=== PATIENT | male | born 1970 | race Caucasian/White ===

== ENCOUNTER 2025-02-25 23:57 | Emergency (ER) | payer BC ==
[~2025-02-25] VITALS: Ht 177.8 cm; Wt 78.0 kg
[2025-02-26 01:17] LABS: CLARITY URINE CLEAR (CLEAR); COLOR URINE YELLOW (YELLOW); GLUCOSE URINE NEGATIVE (NEGATIVE); KETONES URINE TRACE (NEGATIVE); LEUKOCYTE ESTERASE URINE NEGATIVE (NEGATIVE); NITRITE URINE NEGATIVE (NEGATIVE); OCCULT BLOOD URINE NEGATIVE (NEGATIVE); PH URINE 5.5 (4.5-8.0); PROTEIN URINE 1+ (NEGATIVE); SPECIFIC GRAVITY URINE 1.016 (1.005-1.030); UROBILINOGEN URINE 0.2 E.U./dL (0.2-1.0)
[2025-02-26 01:29] LABS: BASOPHILS % 0.0 % (0.0-2.0); EOSINOPHILS % 0.1 % (0.0-5.0); HEMATOCRIT. 41.9 % (42.0-52.0); HEMOGLOBIN. 14.2 g/dL (14.0-18.0); LYMPHOCYTES % 7.8 % (20.0-50.0); MEAN PLATELET VOLUME 6.1 fl (7.4-10.4); MONOCYTES % 11.1 % (2.0-8.0); NEUTROPHILS % 81.0 % (40.0-76.0); PLATELET 280 x1000/uL (130-400); RED BLOOD CELL COUNT 4.89 mill/uL (4.7-6.1); RED CELL DISTRIBUTION WIDTH 13.1 % (11.6-14.6)
[2025-02-26 01:30] LABS: *AMPHETAMINES SCREEN URINE NEGATIVE (NEGATIVE); *BARBITURATES SCREEN URINE NEGATIVE (NEGATIVE); *BENZODIAZEPINES SCREEN URINE PRESUMPTIVE POSITIVE (NEGATIVE)
[2025-02-26 01:31] LABS: *COCAINE SCREEN URINE PRESUMPTIVE POSITIVE (NEGATIVE); CANNABINOID URINE SCREEN PRESUMPTIVE POSITIVE (NEGATIVE); ECSTASY MDMA SCREEN URINE NEGATIVE (NEGATIVE); METHADONE URINE SCREEN NEGATIVE (NEGATIVE); OPIATES URINE SCREEN NEGATIVE (NEGATIVE); PHENCYCLIDINE URINE SCREEN NEGATIVE (NEGATIVE)
[2025-02-26 01:42] LABS: UREA NITROGEN BLOOD 10 mg/dL (9-23)
[2025-02-26 01:43] LABS: CREATININE 1.0 mg/dL (0.6-1.3)
[2025-02-26 01:44] LABS: ETHANOL BLOOD < 10 mg/dL (<10)
[2025-02-26 01:45] LABS: ASPARTATE AMINOTRANSFERASE 19 IU/L (<34)
[2025-02-26 01:46] LABS: BILIRUBIN DIRECT 0.2 mg/dL (<=3.0); BILIRUBIN TOTAL 0.7 mg/dL (0.1-1.0); PROTEIN TOTAL 6.5 g/dL (6.0-8.3)
[2025-02-26 02:05] LABS: BACTERIA URINE TRACE; RBC URINE NONE SEEN /hpf (0-2); SQUAMOUS EPITHELIAL CELL URINE NONE SEEN /lpf (RARE/1+); WBC URINE 0-2 /hpf (0-2)
[2025-02-26] MEDS ORDERED: TRAZODONE HCL 50MG TABLET PO NR (02:15)
[2025-02-26] MEDS: LORAZEPAM 2MG/ML UD SYRINGE IM NR (02:30)
[2025-02-26] MEDS: DIPHENHYDRAMINE 50MG/ML VIAL IM ONE (02:30)
[2025-02-26] MEDS: OLANZAPINE 10 MG/VIAL IM ONE (02:30)
[2025-02-26 03:45] VITALS: O2SAT 97
[2025-02-26] MEDS: POTASSIUM CHLORIDE 20MEQ/PACKET PO ONE (06:08)
[2025-02-26] MEDS ORDERED: TRAZODONE HCL 50MG TABLET PO PRN (11:15)
[2025-02-26] MEDS: OLANZAPINE 5MG TABLET PO SCH (11:56)
[2025-02-26 14:00] VITALS: BP 114/66; PULSE 88; RESP 14; TEMP 36.5; O2SAT 100
[2025-02-26] MEDS ORDERED: TRAZODONE HCL 50MG TABLET PO SCH (21:00)
[2025-02-26] MEDS ORDERED: LAMOTRIGINE 100MG TABLET PO SCH (21:00)
== END 2025-02-26 15:05 ==
LOC: ER 23:57
DX: F19.10 Other psychoactive substance abuse, uncomplicated (principal); R45.1 Restlessness and agitation; Z79.899 Other long term (current) drug therapy
CPT/HCPCS: 36415; 99291; 80076; 80305; 80048; 81003; 80307; 80329; 80320; 85025; 96372; 87426; J3490; J1200; J2060; Z7610 ×2; 96367; 96375; A4606; G0480